=== PATIENT | male | born 2000 | race Caucasian/White ===

== ENCOUNTER 2022-07-01 15:17 | Inpatient (IN) | payer BC ==
[2022-07-01 15:47] LABS: #Monocytes 0.9 thou/uL (0.11-0.59); #Neutrophils 11.5 thou/uL (1.40-6.50); %Basophils 0.3 % (0.0-1.0); %Lymphocytes 8.8 % (21.0-51.0); %Monocytes 6.4 % (0.0-10.0); Hemoglobin 13.8 g/dL (14.0-18.0); Mean Corpuscular HGB CONC 32.8 g/dL (32.0-36.0); Mean Corpuscular Hemoglobin 28.9 pg (27.0-31.0); Mean Corpuscular Volume 88.3 fl (78.0-98.0); Mean Platelet Volume 9.7 fL (7.4-10.4); Platelet Count 268 10x3/uL (130-400); RBC Distribution Width 11.9 % (11.5-14.5); Red Blood Cell (RBC) Count 4.77 mill/uL (4.70-6.10); White Blood Cell (WBC) Count 13.7 10x3/uL (4.8-10.8)
[2022-07-01 16:06] LABS: Phosphorus 2.7 mg/dL (2.3-4.7)
[2022-07-01 16:10] LABS: ALT (SGPT) 28 U/L (8-55); AST (SGOT) 27 U/L (5-34); Alkaline Phosphatase 74 U/L (40-110); Anion Gap 24 mmol/L (10-20); BUN (Urea Nitrogen) 22 mg/dL (8.9-20.6); Bilirubin, Total 0.4 mg/dL (0.2-1.2); Calc. Creatinine Clearance 0 mL/min (70-130); Calcium 8.1 mg/dL (7.8-10.44); Chloride 106 mmol/L (98-107); Estimated GFR 77; Globulin 2.5 g/dL (2.4-3.5); Glucose 264 mg/dL (70-105); Magnesium 2.2 mg/dL (1.6-2.6); Potassium 4.8 mmol/L (3.5-5.1); Protein, Total 6.5 g/dL (6.0-8.3); Sodium 134 mmol/L (136-145)
[2022-07-01 16:28] LABS: Carbon Dioxide 9 mmol/L (22-29)
[2022-07-01 16:30] LABS: Bacteria/HPF None Seen HPF (None Seen); Bilirubin Negative (Negative); Blood, Urine Trace (Negative); Clarity Clear (Clear); Glucose, Urine (Dipstick) Greater than 1000 mg/dL (Negative); Ketone, Urine Greater than 150 mg/dL (Negative); Leukocyte Negative Leu/uL (Negative); Nitrite Negative (Negative); Protein, Urine (Dipstick) 20 mg/dL (Neg-Trace); RBC/HPF None Seen HPF (0-3); Specific Gravity, Urine 1.025 (1.002-1.036); Squamous Epithelial None Seen HPF (0-3); Urobilinogen Normal mg/dL (Less than 2); WBC/HPF 0-3 HPF (0-3)
[2022-07-01] MEDS ORDERED: INSULIN REGULAR IN 0.9 % NACL 100 UNITS/100 ML BAG ONE (16:47)
[2022-07-01] MEDS ORDERED: NS 0.9% w/ 20 MEQ KCL 1,000 ML ONE ×2 (16:47→18:58)
[2022-07-01 16:59] LABS: Analyzer IN Cardio ER; Base Excess -15.9 mEq/L (-2.0 to +3.0); Calcium, Ionized (venous) 1.19 mmol/L (1.16-1.32); Chloride (VBG) 104 mmol/L (98-106); Hematocrit-VBG 44 % (42.0-52.0); Sodium 131.9 mmol/L (133-146); pH (venous) 7.212 (7.32-7.43)
[2022-07-01 17:03] LABS: Actual Bicarbonate (HCO3v) 10.1 mEq/L (22-28)
[2022-07-01] MEDS ORDERED: Dextrose 50% Abboject 50 ML SYRINGE SLOW IVP PRN ×2 (17:12→17:18)
[2022-07-01] MEDS ORDERED: D5 1/2 NS w/20 mEq KCL 1,000 ML IV PRN (17:12)
[2022-07-01] MEDS ORDERED: Electrolyte Replacement Protocol IVPB SCH (17:12)
[2022-07-01] MEDS ORDERED: NS 0.9% w/ 20 MEQ KCL 1,000 ML IV PRN ×2 (17:12)
[2022-07-01] MEDS ORDERED: Sodium Chloride 0.9% 1,000 ML IV PRN ×4 (17:12)
[2022-07-01] MEDS ORDERED: HUMULIN R 100 UNITS in Sodium Chloride 0.9% 100 ML IVPB SCH (17:15)
[2022-07-01] MEDS ORDERED: HumaLOG 300 UNITS/3 ML VIAL SC PRN (17:18)
[2022-07-01] MEDS ORDERED: Dextrose 5% in Water 1,000 ML IV PRN (17:18)
[2022-07-01] MEDS ORDERED: Promethazine HCl 12.5 MG in Sodium Chloride 0.9% 50 ML IVPB PRN (18:39)
[2022-07-01 18:42] LABS: ALT (SGPT) 26 U/L (8-55); AST (SGOT) 25 U/L (5-34); Albumin 3.9 g/dL (3.5-5.0); Alkaline Phosphatase 71 U/L (40-110); Anion Gap 23 mmol/L (10-20); BUN (Urea Nitrogen) 20 mg/dL (8.9-20.6); Bilirubin, Total 0.5 mg/dL (0.2-1.2); Calc. Creatinine Clearance 0 mL/min (70-130); Carbon Dioxide 10 mmol/L (22-29); Chloride 107 mmol/L (98-107); Estimated GFR 79; Globulin 2.4 g/dL (2.4-3.5); Glucose 245 mg/dL (70-105); Potassium 5.5 mmol/L (3.5-5.1); Protein, Total 6.3 g/dL (6.0-8.3); Sodium 134 mmol/L (136-145)
[2022-07-01 21:23] VITALS: BMI 18.1
[2022-07-01] MEDS: Dextrose 5 %-0.45 % NaCl 1,000 ML IV PRN (21:36)
[2022-07-01] MEDS: Insulin Glargine 30 UNITS/0.3 ML VIAL SC SCH (21:37)
[2022-07-02] MEDS: Dextrose 5 %-0.45 % NaCl 1,000 ML IV PRN ×2 (00:43→05:33)
[2022-07-02 05:13] LABS: Amphetamine Not Detected (NotDetected); Barbiturates Screen Not Detected (NotDetected); Benzodiazepine Screen Not Detected (NotDetected); Cocaine Metabolite Screen Detected (NotDetected); Methadone Not Detected (NotDetected); Methamphetamine Not Detected (NotDetected); Opiate Screen Not Detected (NotDetected); Oxycodone Screen Not Detected (NotDetected); Phencyclidine (PCP) Not Detected (NotDetected); THC/Cannabinoid Screen Detected (NotDetected); Tricyclic Screen Not Detected (NotDetected)
[2022-07-02 08:44] LABS: #Basophils 0.1 thou/uL (0.0-0.2); #Eosinphils 0.2 thou/uL (0.0-0.7); #Neutrophils 5.8 thou/uL (1.40-6.50); %Basophils 0.5 % (0.0-1.0); %Eosinophils 1.7 % (0.0-10.0); %Lymphocytes 25.7 % (21.0-51.0); %Monocytes 10.1 % (0.0-10.0); %Neutrophils 61.6 % (42.0-75.0); Hemoglobin 12.5 g/dL (14.0-18.0); Mean Corpuscular HGB CONC 34.2 g/dL (32.0-36.0); Mean Corpuscular Hemoglobin 29.3 pg (27.0-31.0); Mean Platelet Volume 9.3 fL (7.4-10.4); Platelet Count 220 10x3/uL (130-400); RBC Distribution Width 12.3 % (11.5-14.5); Red Blood Cell (RBC) Count 4.27 mill/uL (4.70-6.10); White Blood Cell (WBC) Count 9.5 10x3/uL (4.8-10.8)
[2022-07-02 08:54] LABS: Hemoglobin A1c 10.5 % (4.0-6.0)
[2022-07-02 08:56] LABS: Mean Corpuscular Volume 85.5 fl (78.0-98.0)
[2022-07-02 09:05] LABS: Anion Gap 9 mmol/L (10-20); BUN (Urea Nitrogen) 10 mg/dL (8.9-20.6); Calc. Creatinine Clearance 115 mL/min (70-130); Calcium 7.8 mg/dL (7.8-10.44); Carbon Dioxide 17 mmol/L (22-29); Chloride 112 mmol/L (98-107); Estimated GFR 118; Glucose 166 mg/dL (70-105); Potassium 3.2 mmol/L (3.5-5.1); Sodium 135 mmol/L (136-145)
[2022-07-02] MEDS ORDERED: Potassium Chloride 20 MEQ TAB PO SCH (09:15)
[2022-07-02] MEDS: Insulin Glargine 30 UNITS/0.3 ML VIAL SC SCH (09:27)
[2022-07-02] MEDS ORDERED: NS 0.9% w/ 20 MEQ KCL 1,000 ML/1,000 ML BAG IV SCH (11:00)
[2022-07-02 13:12] VITALS: TEMP 98
[2022-07-02 14:30] LABS: Anion Gap 14 mmol/L (10-20); Carbon Dioxide 18 mmol/L (22-29); Chloride 106 mmol/L (98-107); Potassium 4.5 mmol/L (3.5-5.1); Sodium 133 mmol/L (136-145)
[2022-07-02 14:31] LABS: BUN (Urea Nitrogen) 9 mg/dL (8.9-20.6); Calc. Creatinine Clearance 93 mL/min (70-130); Calcium 8.2 mg/dL (7.8-10.44); Estimated GFR 92; Glucose 333 mg/dL (70-105)
== END 2022-07-02 18:19 | disposition home or self-care (01) | DRG 638 ==
LOC: ERS 15:17 → ERHOLD 17:02 → IMCU/EMU 20:11
PROVIDERS: ADMIT Family Medicine; ATTEND Family Medicine
DX: E10.10 Type 1 diabetes mellitus with ketoacidosis without coma (principal); E44.0 Moderate protein-calorie malnutrition; N17.9 Acute kidney failure, unspecified; Z68.1 Body mass index [BMI] 19.9 or less, adult; F19.10 Other psychoactive substance abuse, uncomplicated; F17.290 Nicotine dependence, other tobacco product, uncomplicated; Z79.4 Long term (current) use of insulin
CPT/HCPCS: 36415; 36416; 80048; 80053; 80306; 81003; 81015; 82010; 82805; 83036; 83735; 84100; 85025; 94760; 96374; J1815; J3480; J3490; J7042; J7999

== ENCOUNTER 2022-12-25 01:47 | Inpatient (IN) | payer SELFPAY ==
[2022-12-25] MEDS ORDERED: Dextrose 5 %-0.45 % NaCl 1,000 ML IV PRN (03:45)
[2022-12-25] MEDS ORDERED: Electrolyte Replacement Protocol 1 EACH IVPB PRN (03:45)
[2022-12-25] MEDS ORDERED: Dextrose 50% Abboject 50 ML SYRINGE SLOW IVP PRN (03:45)
[2022-12-25] MEDS ORDERED: Sodium Chloride 0.9% 1,000 ML IV PRN ×4 (03:45)
[2022-12-25] MEDS ORDERED: NS 0.9% w/ 20 MEQ KCL 1,000 ML IV PRN ×2 (03:45)
[2022-12-25] MEDS ORDERED: HUMULIN R 100 UNITS in Sodium Chloride 0.9% 100 ML IVPB SCH (03:45)
[2022-12-25] MEDS ORDERED: Ondansetron ODT 4 MG TAB PO PRN (03:47)
[2022-12-25] MEDS ORDERED: Acetaminophen 325 MG TAB PO PRN (03:47)
[2022-12-25] MEDS ORDERED: Ondansetron PF 4 MG/2 ML Vial IVP PRN (03:47)
[2022-12-25 05:02] LABS: Anion Gap 23 mmol/L (10-20); BUN (Urea Nitrogen) 23 mg/dL (8.9-20.6); Calc. Creatinine Clearance 62 mL/min (70-130); Calcium 8.5 mg/dL (7.8-10.44); Carbon Dioxide 10 mmol/L (22-29); Chloride 110 mmol/L (98-107); Estimated GFR 63; Glucose 232 mg/dL (70-105); Potassium 4.7 mmol/L (3.5-5.1); Sodium 138 mmol/L (136-145)
[2022-12-25] MEDS: D5 1/2 NS w/20 mEq KCL 1,000 ML IV PRN ×2 (05:28→09:31)
[2022-12-25 05:54] LABS: #Basophils 0.1 thou/uL (0.0-0.2); #Monocytes 1.3 thou/uL (0.11-0.59); #Neutrophils 13.8 thou/uL (1.40-6.50); %Basophils 0.3 % (0.0-1.0); %Eosinophils 0.1 % (0.0-10.0); %Lymphocytes 11.3 % (21.0-51.0); %Monocytes 7.7 % (0.0-10.0); %Neutrophils 79.8 % (42.0-75.0); Hemoglobin 14.4 g/dL (14.0-18.0); Mean Corpuscular Hemoglobin 30.7 pg (27.0-31.0); Mean Corpuscular Volume 85.3 fl (78.0-98.0); Mean Platelet Volume 8.9 fL (7.4-10.4); Platelet Count 282 10x3/uL (130-400); RBC Distribution Width 12.8 % (11.5-14.5); Red Blood Cell (RBC) Count 4.69 mill/uL (4.70-6.10); White Blood Cell (WBC) Count 17.2 10x3/uL (4.8-10.8)
[2022-12-25 06:01] LABS: Hemoglobin A1c 13.6 % (4.0-6.0)
[2022-12-25 06:06] LABS: Magnesium 2.2 mg/dL (1.6-2.6); Phosphorus 2.6 mg/dL (2.3-4.7)
[2022-12-25 06:21] LABS: Anion Gap 17 mmol/L (10-20); BUN (Urea Nitrogen) 20 mg/dL (8.9-20.6); Calc. Creatinine Clearance 68 mL/min (70-130); Calcium 8.6 mg/dL (7.8-10.44); Carbon Dioxide 13 mmol/L (22-29); Chloride 110 mmol/L (98-107); Estimated GFR 70; Glucose 257 mg/dL (70-105); Potassium 4.2 mmol/L (3.5-5.1); Sodium 136 mmol/L (136-145)
[2022-12-25] MEDS ORDERED: HUMULIN R 100 UNITS, Admixture Fee 1 EACH in Sodium Chloride 0.9% 100 ML IVPB SCH (08:15)
[2022-12-25] MEDS ORDERED: FLU VACC QS2023-24(6MOS UP)/PF 60 MCG/0.5 ML SYRINGE IM ONE (09:00)
[2022-12-25] MEDS: Famotidine 20 MG TAB PO SCH ×2 (09:50→20:08)
[2022-12-25] MEDS: Famotidine/PF 20 mg/2ml Vial SLOW IVP SCH ×2 (09:58→20:10)
[2022-12-25 10:31] LABS: Anion Gap 13 mmol/L (10-20); BUN (Urea Nitrogen) 17 mg/dL (8.9-20.6); Calc. Creatinine Clearance 77 mL/min (70-130); Calcium 8.5 mg/dL (7.8-10.44); Carbon Dioxide 17 mmol/L (22-29); Chloride 111 mmol/L (98-107); Estimated GFR 82; Glucose 218 mg/dL (70-105); Potassium 3.9 mmol/L (3.5-5.1); Sodium 137 mmol/L (136-145)
[2022-12-25] MEDS: Doxycycline 100 MG CAP PO SCH ×2 (11:47→20:09)
[2022-12-25] MEDS ORDERED: Dextrose 50% Abboject 50 ML SYRINGE IVP PRN (12:15)
[2022-12-25] MEDS ORDERED: Glucagon 1 MG/ML KIT IM PRN (12:15)
[2022-12-25] MEDS ORDERED: Dextrose 5% in Water 1,000 ML IV PRN (12:15)
[2022-12-25] MEDS ORDERED: Insulin Glargine 30 UNITS/0.3 ML VIAL SC SCH (12:30)
[2022-12-25 14:39] LABS: Anion Gap 11 mmol/L (10-20); BUN (Urea Nitrogen) 14 mg/dL (8.9-20.6); Calc. Creatinine Clearance 83 mL/min (70-130); Calcium 8.6 mg/dL (7.8-10.44); Carbon Dioxide 19 mmol/L (22-29); Chloride 109 mmol/L (98-107); Estimated GFR 90; Glucose 207 mg/dL (70-105); Potassium 3.8 mmol/L (3.5-5.1); Sodium 135 mmol/L (136-145)
[2022-12-25] MEDS: HumaLOG 300 UNITS/3 ML VIAL SC PRN ×2 (17:40→20:09)
[2022-12-25] MEDS: Insulin Glargine 30 UNITS/0.3 ML VIAL SC SCH (20:09)
[2022-12-26] MEDS: HumaLOG 300 UNITS/3 ML VIAL SC PRN (00:40)
[2022-12-26 04:31] LABS: #Basophils 0.1 thou/uL (0.0-0.2); #Eosinphils 0.7 thou/uL (0.0-0.7); #Monocytes 0.9 thou/uL (0.11-0.59); #Neutrophils 4.5 thou/uL (1.40-6.50); %Basophils 0.9 % (0.0-1.0); %Eosinophils 7.8 % (0.0-10.0); %Lymphocytes 31.1 % (21.0-51.0); %Monocytes 9.9 % (0.0-10.0); %Neutrophils 49.7 % (42.0-75.0); Hematocrit 37.5 % (42.0-52.0); Hemoglobin 13.3 g/dL (14.0-18.0); Mean Corpuscular HGB CONC 35.5 g/dL (32.0-36.0); Mean Corpuscular Hemoglobin 30.6 pg (27.0-31.0); Mean Corpuscular Volume 86.4 fl (78.0-98.0); Mean Platelet Volume 9.3 fL (7.4-10.4); Platelet Count 217 10x3/uL (130-400); RBC Distribution Width 13.5 % (11.5-14.5); Red Blood Cell (RBC) Count 4.34 mill/uL (4.70-6.10)
[2022-12-26 04:54] LABS: Anion Gap 10 mmol/L (10-20); BUN (Urea Nitrogen) 12 mg/dL (8.9-20.6); Calc. Creatinine Clearance 110 mL/min (70-130); Calcium 8.8 mg/dL (7.8-10.44); Carbon Dioxide 22 mmol/L (22-29); Chloride 110 mmol/L (98-107); Estimated GFR 123; Glucose 102 mg/dL (70-105); Sodium 139 mmol/L (136-145)
[2022-12-26 05:21] VITALS: BMI 16.6
[2022-12-26] MEDS ORDERED: Potassium Chloride 20 MEQ TAB PO SCH (08:00)
[2022-12-26 08:25] VITALS: TEMP 97.7
[2022-12-26] MEDS ORDERED: Bacitracin 1 PK TOP SCH (09:00)
[2022-12-26] MEDS: Famotidine 20 MG TAB PO SCH (09:23)
[2022-12-26] MEDS: Insulin Glargine 30 UNITS/0.3 ML VIAL SC SCH (09:23)
[2022-12-26] MEDS: Doxycycline 100 MG CAP PO SCH (09:23)
== END 2022-12-26 11:06 | disposition home or self-care (01) | DRG 871 ==
LOC: CCU 03:19
PROVIDERS: ADMIT Student in an Organized Health Care Education/Training Program; ATTEND Hospitalist
DX: A41.9 Sepsis, unspecified organism (principal); E10.10 Type 1 diabetes mellitus with ketoacidosis without coma; G93.41 Metabolic encephalopathy; N17.9 Acute kidney failure, unspecified; F12.90 Cannabis use, unspecified, uncomplicated; H66.42 Suppurative otitis media, unspecified, left ear; E87.8 Other disorders of electrolyte and fluid balance, not elsewhere classified; Z79.4 Long term (current) use of insulin; I10 Essential (primary) hypertension; E87.5 Hyperkalemia
CPT/HCPCS: 36415; 36416; 80048; 83036; 83735; 84100; 85025; J1815; J3480; J3490; S0028